=== PATIENT | male | born 1990 ===

== ENCOUNTER 2022-02-18 05:50 | Day surgery (SDC) | payer OTHER | END 2022-02-18 15:25 | disposition home or self-care (01) | LOC: CIR.AMB 05:50 | PROVIDERS: ATTEND Otolaryngology Otology & Neurotology | DX: H71.01 Cholesteatoma of attic, right ear (principal); E78.5 Hyperlipidemia, unspecified; Z86.16 Personal history of COVID-19; Z20.822 Contact with and (suspected) exposure to COVID-19; H90.11 Conductive hearing loss, unilateral, right ear, with unrestricted hearing on the contralateral side ==